=== PATIENT | male | born 1970 | race Caucasian/White ===

== ENCOUNTER → 2016-11-21 | Outpatient (CLI) | payer BC ==
[~2016-11-21] MED LIST: BACTRIM DS TABL1 TA1 PO; LIPITOR40 MG PO; METFORMIN PO; PRILOSEC PO; TYLOX PO
--- NOTE | ~2016-11-21 | XA170 ---
[facility] A Service of [facility] RADIOLOGY TEXT RESULTS PATIENT: TIM MENJIVAR LOCATION: [facility] : 72 UNIT #: [id number] AGE: [address]: RAMON SOTO APRN SEX: M ORDER DR: [id number] [facility] [address] [place], [place] [address] [id number] O MR#: [id number] Acc #: [id number] NAME: TIM MENJIVAR : 1970 SEX: M STUDY DATE/TIME: 11/21/2016 12:39 UNIT: [facility] ROOM: STUDY DESCRIPTION: XA Paracentesis W Image Attending Physician: Ramon Soto Aprn Referring Physician: Ramon Soto Aprn Ordering Physician: Ramon Soto Aprn Primary Care Physician: Christianne Pérez Aprn MEDICAL IMAGING REPORT This report is preliminary unless electronic signature is present EXAM Ultrasound-guided paracentesis, 11/21/2016 HISTORY Ascites PROCEDURE Informed consent was obtained and a skin site was selected with ultrasound guidance and marked, sterilely prepped and draped and locally anesthetized. A Viamedia needle catheter was used for paracentesis and 1.75 L of fluid was removed. Typical clear yellow tinged fluid was aspirated. There were no complications and the patient tolerated the procedure well. IMPRESSION Successful ultrasound-guided right lower quadrant paracentesis with removal of 1.75 L of fluid. Dictated by... Deshawn Gonsalez M.D. THIS IS AN ELECTRONICALLY VERIFIED REPORT Deshawn Gonsalez M.D. at 11/26/2016 10:37 AM DOM/dana TD: 11/22/2016 10:43 JOB #: [id number] MEDICAL IMAGING REPORT Page 1 of 1 COPY
--- NOTE | ~2016-11-21 | CT7 ---
[facility] A Service of [facility] RADIOLOGY TEXT RESULTS PATIENT: TIM MENJIVAR [facility]: [facility] : 72 UNIT #: [id number] AGE: [address]: RAMON SOTO APRN SEX: M ORDER DR: [id number] [facility]. [place], [place] [address] [id number] O MR#: [id number] Acc #: [id number] NAME: TIM MENJIVAR : 1970 SEX: M STUDY DATE/TIME: 11/21/2016 12:25 UNIT: [facility] ROOM: STUDY DESCRIPTION: CT Abdomen Wo Cont Attending Physician: Ramon Soto Aprn Referring Physician: Ramon Soto Aprn Ordering Physician: Ramon Soto Aprn Primary Care Physician: Christianne Pérez Aprn MEDICAL IMAGING REPORT This report is preliminary unless electronic signature is present EXAM CT abdomen to contract 11/21/[address] abdomen and pelvis 09/05/2016. HISTORY Known cirrhosis, abdominal tightness, and swelling for 2.5 months. PROCEDURE Axial unenhanced CT abdomen with multiplanar reformats. This CT exam was performed with one or more of the following radiation dose reduction techniques: automatic exposure control, adjustment of mA and/or kV according to patient size, and iterative reconstruction. FINDINGS The lung bases are normal. The liver is cirrhotic. There are no definite gastroesophageal varices. The spleen is at the upper limits normal for size at 15 cm. There is mild perihepatic and perisplenic ascites. There is no bowel obstruction. Unenhanced images of the kidneys are normal and the aorta is normal in caliber. IMPRESSION Cirrhosis, borderline splenomegaly, mild ascites. No bowel obstruction, no suspicious mass. Dictated by... Deshawn Gonsalez M.D. THIS IS AN ELECTRONICALLY VERIFIED REPORT [facility] A Service [facility] RADIOLOGY TEXT RESULTS PATIENT: TIM MENJIVAR [facility] : 72 UNIT #: [id number] AGE: [address]: RAMON SOTO APRN SEX: M ORDER DR: Deshawn Gonsalez M.D. at 11/26/2016 10:37 AM TEV/lisa TD: 11/22/2016 08:12 JOB #: [id number] MEDICAL IMAGING REPORT Page 1 of 1 COPY
[2016-11-21 11:59] LABS: HEMATOCRIT 51.1 % (38.0-50.0); MEAN CELL VOLUME 94.9 FL (83-96); MEAN CORPUSCULAR HEMOGLOBIN 31.6 PG (28-34); MEAN CORPUSCULAR HGB CONC 33.3 g/dL (30-36); MEAN PLATELET VOLUME 9.9 FL (6.5-11.5); RED BLOOD COUNT 5.38 X10e (3.90-5.60); RED CELL DISTRIBUTION WIDTH 13.8 % (11.0-15.5); WHITE BLOOD COUNT 4.9 X10e3 (4.0-10.5)
[2016-11-21 12:15] LABS: INR 1.1; PARTIAL THROMBOPLASTIN TIME 25.9 SECONDS (23.5-31.3); PROTHROMBIN TIME (PATIENT) 12.1 SECONDS (9.6-11.5)
[2016-11-21 14:07] LABS: BF TOTAL NUCLEATED CELL COUNT 823 CMM (0-100); BODY FLUID APPEARANCE HAZY; BODY FLUID RBC <10000 CMM; BODY FLUID SOURCE ASCITES
== END | disposition home or self-care (01) ==
LOC: CLAB 10:50
PROVIDERS: Nurse Practitioner
DX: R18.8 Other ascites (principal); R93.5 Abnormal findings on diagnostic imaging of other abdominal regions, including retroperitoneum; K74.60 Unspecified cirrhosis of liver
CPT/HCPCS: 36415; 74150; 82042; 85027; 85610; 85730; 88108; 88305; 89051